=== PATIENT | male | born 1990 | race Caucasian/White ===

== ENCOUNTER 2016-10-01 03:38 | Emergency (ER) | payer OTHER ==
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
[2016-10-01] MEDS ORDERED: DEXAMETHASONE INJ 4 MG/ML VIAL IV ONE (04:25)
[2016-10-01] MEDS ORDERED: LACTATED RINGERS 1,000 ML IVS ONE (04:27)
--- NOTE | 2016-10-01 05:52 | CT ---
Clinical History : headache,dizziness , MAIN Exam : CT Head without contrast 10/01/2016 4:25 AM LITERARY AGENT Comparisons : none. Technique : Volumetric CT acquisition was performed through the brain. Images in the axial, coronal, and sagittal planes were presented for interpretation. Radiation dose : [id number]-773.97 Findings: The soft tissue structures of the face, scalp, and orbits are normal. The globes remain intact.The visualized portions of the paranasal sinuses and mastoid air-cells are clear. The calvarium remains intact .There is no acute intracranial hemorrhage, midline shift, or mass effect. The ventricles are normal in size and the posterior fossa structures are normal in appearance. Limited evaluation of the vasculature demonstrates no gross abnormalities. There is no CT evidence of acute infarction. Impression: No acute intracranial process. Electronically signed by: Esha Garrison MD 10/01/2016 5:21 AM LITERARY AGENT
[2016-10-01 06:16] VITALS: BP 116/50; TEMP 97; O2SAT 98
--- NOTE | 2016-10-08 13:45 | CT ---
Clinical History : headache,dizziness , MAIN Exam : CT Head without contrast 10/01/2016 4:25 AM TRAINING ANALYST Comparisons : none. Technique : Volumetric CT acquisition was performed through the brain. Images in the axial, coronal, and sagittal planes were presented for interpretation. Radiation dose : [id number] Findings: The soft tissue structures of the face, scalp, and orbits are normal. The globes remain intact.The visualized portions of the paranasal sinuses and mastoid air-cells are clear. The calvarium remains intact .There is no acute intracranial hemorrhage, midline shift, or mass effect. The ventricles are normal in size and the posterior fossa structures are normal in appearance. Limited evaluation of the vasculature demonstrates no gross abnormalities. There is no CT evidence of acute infarction. Impression: No acute intracranial process. Electronically signed by: Esha Garrison MD 10/01/2016 5:21 AM TRAINING ANALYST
--- NOTE | 2016-10-13 00:13 | CT ---
Clinical History : headache,dizziness , MAIN Exam : CT Head without contrast 10/01/2016 4:25 AM ROLL PLUGGER MACHINE OPERATOR Comparisons : none. Technique : Volumetric CT acquisition was performed through the brain. Images in the axial, coronal, and sagittal planes were presented for interpretation. Radiation dose : [id number] Findings: The soft tissue structures of the face, scalp, and orbits are normal. The globes remain intact.The visualized portions of the paranasal sinuses and mastoid air-cells are clear. The calvarium remains intact .There is no acute intracranial hemorrhage, midline shift, or mass effect. The ventricles are normal in size and the posterior fossa structures are normal in appearance. Limited evaluation of the vasculature demonstrates no gross abnormalities. There is no CT evidence of acute infarction. Impression: No acute intracranial process. Electronically signed by: Esha Garrison MD 10/01/2016 5:21 AM ROLL PLUGGER MACHINE OPERATOR
--- NOTE | 2016-10-13 00:13 | CT ---
Clinical History : headache,dizziness , MAIN Exam : CT Head without contrast 10/01/2016 4:25 AM GENERAL FREIGHT AGENT Comparisons : none. Technique : Volumetric CT acquisition was performed through the brain. Images in the axial, coronal, and sagittal planes were presented for interpretation. Radiation dose : [id number] Findings: The soft tissue structures of the face, scalp, and orbits are normal. The globes remain intact.The visualized portions of the paranasal sinuses and mastoid air-cells are clear. The calvarium remains intact .There is no acute intracranial hemorrhage, midline shift, or mass effect. The ventricles are normal in size and the posterior fossa structures are normal in appearance. Limited evaluation of the vasculature demonstrates no gross abnormalities. There is no CT evidence of acute infarction. Impression: No acute intracranial process. Electronically signed by: Esha Garrison MD 10/01/2016 5:21 AM GENERAL FREIGHT AGENT
== END 2016-10-01 06:16 | disposition home or self-care (01) ==
LOC: ER 03:38
DX: R42 Dizziness and giddiness (principal); Z87.820 Personal history of traumatic brain injury; Z79.899 Other long term (current) drug therapy
CPT/HCPCS: 70450; 80053; 80307; 81001; 85025; 87502; 93005; J1100; J7120